=== PATIENT | male | born 2000 | race Caucasian/White ===

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

== ENCOUNTER 2023-02-18 20:19 | Emergency (ER) | payer OTHER ==
[~2023-02-18] VITALS: Ht 177.8 cm; Wt 78.9 kg
[~2023-02-18 20:19] MED LIST changes: +KEFLEX125 MG/5 M PO
[2023-02-18] MEDS ORDERED: KETOROLAC TROMETHAMINE 60 MG/2 ML VIAL ONE (20:57)
[2023-02-18] MEDS ORDERED: CYCLOBENZAPRINE HCL 10 MG TAB ONE (20:58)
[2023-02-18] MEDS ORDERED: DIAZEPAM 5 MG TAB PO STA (21:31)
[2023-02-18] MEDS ORDERED: METHOCARBAMOL 500 MG TAB PO ONE (21:45)
[2023-02-18 21:53] LABS: BASOPHILS % 0.2 % (0.0-1.0); EOSINOPHILS % 0.3 % (0.0-6.0); HEMATOCRIT 41.1 % (38.2-49.6); HEMOGLOBIN 14.5 g/dL (14.0-18.0); LYMPHOCYTES % 8.9 % (18.0-39.1); MEAN CORPUSCULAR HEMOGLOBIN 30.3 pg (28-32); MEAN CORPUSCULAR HGB CONC 35.3 g/dL (31-35); MEAN CORPUSCULAR VOLUME 85.8 fL (81-99); MONOCYTES # (AUTO) 1.3 (0.2-0.8); MONOCYTES % 11.3 % (4.4-11.3); NEUTROPHILS # (AUTO) 8.7 (2.1-6.9); PLATELET COUNT 249 x10e3/uL (140-360); RED BLOOD COUNT 4.79 x10e6/uL (4.3-5.7); RED CELL DISTRIBUTION WIDTH 11.6 % (11.7-14.4)
[2023-02-18 22:01] LABS: ALBUMIN 3.6 g/dL (3.5-5.0); ANION GAP 14.3 mmol/L (8-16); CALCIUM 9.5 mg/dL (8.4-10.2); CREATININE, SERUM 0.79 mg/dL (0.72-1.25); POTASSIUM 4.3 mmol/L (3.5-5.1)
[2023-02-18 22:02] LABS: ALBUMIN/GLOBULIN RATIO 0.8 (0.8-2.0)
[2023-02-19] MEDS ORDERED: METHOCARBAMOL750 MG PO (01:41)
[2023-02-19 02:13] VITALS: BP 103/78
== END 2023-02-19 02:05 | disposition home or self-care (01) ==
LOC: ER 20:21
DX: K91.841 Postprocedural hemorrhage of a digestive system organ or structure following other procedure (principal); K62.89 Other specified diseases of anus and rectum
CPT/HCPCS: 36415; 80053; 85025; 99283; J1885